=== PATIENT | male | born 1995 | race African-American/Black ===

== ENCOUNTER 2017-01-26 18:49 | Emergency (ER) | payer MEDICAID ==
[~2017-01-26] VITALS: Ht 180.3 cm; Wt 64.0 kg
[2017-01-26] MEDS ORDERED: SODIUM CHLORIDE 0.9% 1,000 ML IV ONE (20:46)
[2017-01-26] MEDS ORDERED: MORPHINE SULFATE 4 MG/ML CPJ (NOT FOR IM USE) IV ONE (21:00)
[2017-01-26] MEDS ORDERED: ONDANSETRON HCL 4MG/2ML VIAL IV ONE (21:00)
[2017-01-26] MEDS ORDERED: DEXAMETHASONE 10MG/ML 1ML VIAL IV ONE (21:00)
[2017-01-26 22:49] VITALS: BP 120/76
== END 2017-01-26 23:35 | disposition home or self-care (01) ==
LOC: ER 20:43
DX: G43.909 Migraine, unspecified, not intractable, without status migrainosus (principal)
CPT/HCPCS: 96361; 96374; 96375; 99285; J1100; J2270; J2405; J7030; Z7610

== ENCOUNTER 2017-06-22 09:44 | Emergency (ER) | payer MEDICAID ==
[~2017-06-22] VITALS: Ht 180.3 cm; Wt 65.0 kg
[2017-06-22] MEDS ORDERED: KETOROLAC 30MG/ML VIAL IM ONE (11:15)
[2017-06-22 11:20] VITALS: BP 133/85
== END 2017-06-22 11:25 | disposition home or self-care (01) ==
LOC: ER 09:58
DX: M54.6 Pain in thoracic spine (principal); M54.5 Low back pain; V89.2XXA Person injured in unspecified motor-vehicle accident, traffic, initial encounter; Y93.89 Activity, other specified; Y92.411 Interstate highway as the place of occurrence of the external cause; Y99.8 Other external cause status
CPT/HCPCS: 96372; 99283; J1885

== ENCOUNTER 2019-02-19 16:57 | Emergency (ER) | payer MEDICAID ==
[~2019-02-19] VITALS: Ht 182.9 cm; Wt 65.0 kg
[2019-02-19] MEDS ORDERED: MORPHINE SULFATE 10 MG/ML CPJ IM ONE (19:00)
[2019-02-19] MEDS ORDERED: KETOROLAC 30MG/ML VIAL IM ONE (19:00)
[2019-02-19 21:38] VITALS: BP 118/71
== END 2019-02-19 21:41 | disposition home or self-care (01) ==
LOC: ER 16:57
DX: S40.011A Contusion of right shoulder, initial encounter (principal); S09.8XXA Other specified injuries of head, initial encounter; V43.52XA Car driver injured in collision with other type car in traffic accident, initial encounter; Y93.89 Activity, other specified; Y92.89 Other specified places as the place of occurrence of the external cause; Y99.8 Other external cause status
CPT/HCPCS: 70450; 71045; 73030; 96372; 99284; J1885; J2270

== ENCOUNTER 2020-03-31 12:54 | Emergency (ER) | payer MEDICAID ==
[~2020-03-31] VITALS: Ht 180.3 cm; Wt 63.0 kg
[2020-03-31] MEDS ORDERED: SODIUM CHLORIDE 0.9% 1,000 ML IV ONE (13:21)
[2020-03-31 14:23] LABS: CLARITY URINE CLEAR (CLEAR); COLOR URINE YELLOW (YELLOW); KETONES URINE NEGATIVE (NEGATIVE); LEUKOCYTE ESTERASE URINE NEGATIVE (NEGATIVE); NITRITE URINE NEGATIVE (NEGATIVE); OCCULT BLOOD URINE NEGATIVE (NEGATIVE); PH URINE 7.5 (4.5-8.0); PROTEIN URINE NEGATIVE (NEGATIVE); SPECIFIC GRAVITY URINE 1.012 (1.005-1.030); UROBILINOGEN URINE 0.2 E.U./dL (0.2-1.0)
[2020-03-31 15:12] LABS: BASOPHILS % 1.2 % (0.0-2.0); EOSINOPHILS % 0.7 % (0.0-5.0); HEMATOCRIT. 46.1 % (42.0-52.0); HEMOGLOBIN. 15.6 g/dL (14.0-18.0); LYMPHOCYTES % 36.9 % (20.0-50.0); MEAN CORPUSCULAR HEMOGLOBIN 31.8 pg (28.0-32.0); MEAN CORPUSCULAR VOLUME 93.9 fL (80.0-94.0); MEAN PLATELET VOLUME 9.6 fl (7.4-10.4); MONOCYTES % 9.6 % (2.0-8.0); NEUTROPHILS % 51.6 % (40.0-76.0); PLATELET 197 x1000/uL (130-400); RED CELL DISTRIBUTION WIDTH 12.7 % (11.6-14.6)
[2020-03-31 15:22] LABS: INR 1.1; PROTHROMBIN TIME 11.4 sec (9.6-11.0)
[2020-03-31 16:14] LABS: CHLORIDE 107 mEq/L (98-107)
[2020-03-31 18:01] VITALS: BP 118/68
[2020-03-31] MEDS ORDERED: IOHEXOL-300 100 ML BOTTLE ONE (23:30)
== END 2020-03-31 19:00 | disposition home or self-care (01) ==
LOC: ER 12:54
DX: R10.9 Unspecified abdominal pain (principal); R19.7 Diarrhea, unspecified
CPT/HCPCS: 36415; 74177; 80053; 81003; 83690; 85025; 85610; 93005; 96360; 99285; J7030; Q9967